=== PATIENT | male | born 1945 | race Caucasian/White ===

== ENCOUNTER 2018-07-17 03:43 | Emergency (ER) | payer MEDICARE, OTHER ==
[2018-07-17] MEDS ORDERED: Acetaminophen/HYDROcodone 325-5 MG Tab PO ONE (05:03)
--- NOTE | 2018-07-17 05:03 | EDM.PDOC ---
ED HPI GENERAL MEDICAL PROBLEM - General Chief Complaint: Upper Extremity Injury/Pain Stated Complaint: Elbow pain Time Seen by Provider: 07/17/18 04:26 Source of Information: Reports: Patient History Limitations: Reports: No Limitations - History of Present Illness INITIAL COMMENTS - FREE TEXT/NARRATIVE: Patient presents with pain and swelling of left elbow that occurred rather suddenly over the past couple days. 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 He first started noticing that it hurt to rest his arm on the arm rest, then yesterday it started to swell. Over night it became much more swollen. No fever or immune compromise. Denies any kidney disease. left elbow Pain Score (Numeric/FACES): 7 - Related Data Allergies Allergy/AdvReac Type Severity Reaction Status Date / Time No Known Allergies Allergy Verified 07/17/18 03:51 Home Meds: Home Meds . [No Known Home Meds] 07/17/18 [History] Past Medical History HEENT History: Reports: Other (See Below) Cardiovascular History: Reports: Other (See Below) Other Cardiovascular History: Leaky valve Other Respiratory History: Sarcoidosis Neurological History: Reports: Neuropathy, Peripheral Other Neuro History: Bilateral feet neuropathy - Infectious Disease History Infectious Disease History: Reports: None - Past Surgical History HEENT Surgical History: Reports: Other (See Below) Other HEENT Surgeries/Procedures: Eclipse piston replacement Left ear in 2016 Cardiovascular Surgical History: Reports: None Respiratory Surgical History: Reports: None Social & Family History - Family History Family Medical History: Noncontributory - Tobacco Use Smoking Status *Q: Never Smoker Second Hand Smoke Exposure: No - Caffeine Use Caffeine Use: Reports: Coffee - Alcohol Use Days Per Week of Alcohol Use: 3 Number of Drinks Per Day: 2 Total Drinks Per Week: 6 - Recreational Drug Use Recreational Drug Use: No Review of Systems - Review of Systems Review Of Systems: See Below Constitutional: Denies: Chills, Fever, Weakness Eyes: Reports: No Symptoms Ears: Reports: No Symptoms Nose: Reports: No Symptoms Mouth/Throat: Reports: No Symptoms Respiratory: Denies: Shortness of Breath, Cough Cardiovascular: Denies: Chest Pain, Syncope GI/Abdominal: Denies: Abdominal Pain Genitourinary: Reports: No Symptoms Musculoskeletal: Denies: Neck Pain, Shoulder Pain, Back Pain, Hand Pain, Leg Pain Skin: Denies: Cyanosis, Jaundice, Mottled, Pallor, Diaphoresis Neurological: Denies: Confusion, Dizziness, Headache, Seizure, Syncope, Trouble Speaking, Difficulty Walking Psychiatric: Denies: Confusion ED EXAM, GENERAL - Physical Exam Exam: See Below Exam Limited By: No Limitations General Appearance: Alert, WD/WN, No Apparent Distress Eye Exam: Bilateral Eye: EOMI, Normal Inspection, PERRL Ears: Normal External Exam, Hearing Grossly Normal Nose: Normal Inspection, No Blood Throat/Mouth: Normal Inspection, Normal Lips, Normal Voice, No Airway Compromise Head: Atraumatic, Normocephalic Neck: Normal Inspection, Full Range of Motion Respiratory/Chest: No Respiratory Distress, Lungs Clear, Normal Breath Sounds, No Accessory Muscle Use Cardiovascular: Regular Rate, Rhythm, No Murmur GI/Abdominal: No Distention Back Exam: Normal Inspection, Full Range of Motion Extremities: Normal Capillary Refill, Other (left elbow has a large posterior superficial effusion consistent with aseptic olecranon bursitis. No redness or warmth to touch. Tender to palpation and flexion. Full extension okay. No abrasions, cuts or other skin wounds that would be potential sites of infection entry.). No: Increased Warmth, Mottled, Pallor, Redness Neurological: Alert, Oriented, Normal Cognition, No Motor/Sensory Deficits Psychiatric: Normal Affect, Normal Mood Skin Exam: Warm, Dry, Intact, Normal Color, No Rash Course - Vital Signs Last Recorded V/S: Last Vital Signs Temp 99.2 F 07/17/18 03:45 Pulse 80 07/17/18 03:45 Resp 20 07/17/18 03:45 BP 155/55 H 07/17/18 03:45 Pulse Ox 92 L 07/17/18 03:45 - Re-Assessments/Exams Free Text/Narrative Re-Assessment/Exam: 07/17/18 05:21 This is consistent with aseptic olecranon bursitis. I discussed findings and recommendations with patient and his , including need for urgent followup if fever or increasing redness develops. I wrapped snuggly with NATHALIA but after a few minutes this increased the pain so I loosened somewhat. I gave him 2 tabs of hydrocodone to try to get some sleep. He will use Ibuprofen, ice, compression and extremity rest for a few days and follow up with orthopedics if not improving. Discharged to home in stable condition. Departure - Departure Time of Disposition: 04:51 Disposition: Home, Self-Care 01 Condition: Good Clinical Impression: Olecranon bursitis, left elbow Clinical Impression: (Ruled Out): Olecranon bursitis, right elbow - Discharge Information Instructions: Elbow Bursitis, [id number] Additional Instructions: 1. Try to rest elbow as much as possible, keep compression (NATHALIA) wrap on most of time, ice pack 20-30 minutes 2-3 times a day. 2. Try to avoid re-injury and activities that cause pain to elbow. 3. Take Ibuprofen 600 mg three times a day for 4-5 days. 4. Use the Hydrocodone as directed if pain isn't controlled by ice and Ibuprofen. 5. Follow up with an orthopedic doctor if not improving in a few days or sooner if worsening, fever, increasing redness.
== END 2018-07-17 05:10 | disposition home or self-care (01) ==
LOC: KA.ED 03:43
DX: M70.22 Olecranon bursitis, left elbow (principal)
CPT/HCPCS: 99283; 99284; A9270-GY

== ENCOUNTER 2019-09-03 20:29 | Emergency (ER) | payer MEDICARE, OTHER ==
[2019-09-03] MEDS: Lidocaine 1% with EPINEPHrine 1:100,000 20 ML MDV ONE (21:11)
[2019-09-03] MEDS: Lidocaine 1% with EPINEPHrine 1:100,000 20 ML MDV INJECT ONE (21:15)
[2019-09-03] MEDS: Diphtheria,Pertussis(Acell),Tetanus Vaccine 0.5 ML SDV IM ONE (21:16)
--- NOTE | 2019-09-03 21:29 | EDM.PDOC ---
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 He has a deep laceration and it hurts quite a bit to move very much. He denies hitting his head; denies LOC, neck pain, back pain or pain in other extremities. Right Elbow Pain Score (Numeric/FACES): 7 - Related Data Allergies Allergy/AdvReac Type Severity Reaction Status Date / Time No Known Allergies Allergy Verified 09/03/19 20:30 Home Meds: Home Meds . [No Known Home Meds] 07/17/18 [History] Past Medical History HEENT History: Reports: Other (See Below) Cardiovascular History: Reports: Other (See Below) Other Cardiovascular History: Leaky valve Other Respiratory History: Sarcoidosis Neurological History: Reports: Neuropathy, Peripheral Other Neuro History: Bilateral feet neuropathy - Infectious Disease History Infectious Disease History: Reports: None - Past Surgical History HEENT Surgical History: Reports: Other (See Below) Other HEENT Surgeries/Procedures: Eclipse piston replacement Left ear in 2016 Cardiovascular Surgical History: Reports: None Respiratory Surgical History: Reports: None Social & Family History - Family History Family Medical History: Noncontributory - Tobacco Use Smoking Status *Q: Never Smoker - Caffeine Use Caffeine Use: Reports: Coffee - Alcohol Use Days Per Week of Alcohol Use: 6 Number of Drinks Per Day: 3 Total Drinks Per Week: 18 - Recreational Drug Use Recreational Drug Use: No ED ROS GENERAL - Review of Systems Review Of Systems: See Below Constitutional: Denies: Fever, Chills, Malaise, Weakness HEENT: Denies: Ear Pain, Throat Pain, Vision Change Respiratory: Denies: Shortness of Breath, Cough Cardiovascular: Denies: Chest Pain, Lightheadedness, Syncope GI/Abdominal: Denies: Abdominal Pain, Vomiting : Reports: No Symptoms Musculoskeletal: Denies: Neck Pain, Shoulder Pain, Back Pain, Hand Pain, Leg Pain Skin: Denies: Cyanosis, Jaundice, Mottled, Pallor, Diaphoresis Neurological: Denies: Confusion, Dizziness, Headache, Seizure, Syncope, Trouble Speaking, Difficulty Walking Psychiatric: Denies: Agitation, Anxiety, Confusion ED EXAM, GENERAL - Physical Exam Exam: See Below Exam Limited By: No Limitations General Appearance: Alert, WD/WN, No Apparent Distress Eye Exam: Bilateral Eye: EOMI, Normal Inspection, PERRL Ears: Normal External Exam, Hearing Grossly Normal Nose: Normal Inspection, No Blood Throat/Mouth: Normal Inspection, Normal Voice, No Airway Compromise Head: Atraumatic, Normocephalic Neck: Normal Inspection, Non-Tender, Full Range of Motion. No: Tender Lateral, Tender Midline Respiratory/Chest: No Respiratory Distress, Lungs Clear, Normal Breath Sounds, No Accessory Muscle Use Cardiovascular: Regular Rate, Rhythm, No Murmur GI/Abdominal: Soft, Non-Tender, No Organomegaly, No Distention Back Exam: Normal Inspection, Full Range of Motion. No: Paraspinal Tenderness, Vertebral Tenderness Extremities: Other (3 cm laceration of posterior elbow that is deep and involves a lateral muscle; any movement is painful but can tolerate flexion to 90 degrees and extension to 160. Supination and pronation okay. Wrist and shoulder normal, painfree ROM. Distal CMS intact. Other extremities normal.) Neurological: Alert, Oriented, Normal Cognition, No Motor/Sensory Deficits Psychiatric: Normal Affect, Normal Mood Skin Exam: Warm, Dry, Normal Color, No Rash Course - Vital Signs Last Recorded V/S: Last Vital Signs Temp 97.5 F 09/03/19 20:46 Pulse 60 09/03/19 20:46 Resp 18 09/03/19 20:46 BP 138/59 L 09/03/19 20:46 Pulse Ox 95 09/03/19 20:46 - Orders/Labs/Meds Orders: Active Orders 24 hr Category Date Time Status Vaccines to be Administered [RC] PER UNIT ROUTINE Care 09/03/19 21:10 Active Elbow Min 3V Rt [CR] Stat Exams 09/03/19 20:39 Taken Meds: Medications Discontinued Medications Generic Name Dose Route Start Last Admin Trade Name Freq PRN Reason Stop Dose Admin Diphtheria/Tetanus/Acell Pertussis 0.5 ml 09/03/19 21:10 09/03/19 21:16 Adacel IM 09/03/19 21:11 0.5 ml .ONCE ONE Administration Lidocaine/Epinephrine Confirm 09/03/19 21:08 09/03/19 21:11 Xylocaine 1% With Epinephrine 1:100,000 Administered 09/03/19 21:09 Not Given Dose 20 ml .ROUTE .STK-MED ONE Lidocaine/Epinephrine 3 ml 09/03/19 21:10 09/03/19 21:15 Xylocaine 1% With Epinephrine 1:100,000 INJECT 09/03/19 21:11 3 ml ONETIME ONE Administration - Re-Assessments/Exams Free Text/Narrative Re-Assessment/Exam: 09/03/19 21:29 I didn't see a fracture and was getting ready to do the repair when the report came that there is a olecranon spur fracture. Since this would qualify as an open fracture I called [facility] and discussed case with Dr. Meyer. He is now reviewing the images and will call me back with recommendations. Patient has soaked for 15 minutes in hibiclens solution and I irrigated with 100 cc of same. I see what appears to be a muscle/tendon tear also. 09/03/19 21:45 Dr. Meyer called back and isn't convinced that there is a fracture but we discussed the possible muscle/tendon tear and decided to have patient go to [place] [facility]/ortho for evaluation. Discussed findings and plan with patient who is agreeable with this. We have given him TDAP. Discharged in stable condition to go directly to [facility]. Departure - Departure Time of Disposition: 21:44 Disposition: DC/Tfer to Acute Hospital 02 Condition: Good Clinical Impression: Laceration of elbow, right, with tendon involvement Qualifiers: Encounter type: initial encounter Qualified Code(s): S51.011A - Laceration without foreign body of right elbow, initial encounter; S46.921A - Laceration of unspecified muscle, fascia and tendon at shoulder and upper arm level, right arm, initial encounter - Discharge Information Referrals: Levi Echevarria MD [Primary Care Provider] - Additional Instructions: Go directly to [facility] in [place]. Don't eat or drink anything before you get there. Sepsis Event Note (ED) - Evaluation Sepsis Screening Result: No Definite Risk - Focused Exam Vital Signs: Vital Signs Temp Pulse Resp BP Pulse Ox 09/03/19 20:46 97.5 F 60 18 138/59 L 95 - My Orders Last 24 Hours: My Active Orders 09/03/19 20:39 Elbow Min 3V Rt [CR] Stat 09/03/19 21:10 Vaccines to be Administered [RC] PER UNIT ROUTINE - Assessment/Plan Last 24 Hours: My Active Orders 09/03/19 20:39 Elbow Min 3V Rt [CR] Stat 09/03/19 21:10 Vaccines to be Administered [RC] PER UNIT ROUTINE
--- NOTE | 2019-09-04 09:08 | CR ---
[id number] RAD/RAD Elbow Right 3V Min EXAM: RAD Elbow Right 3V Min INDICATION: FALL COMPARISON: None. DISCUSSION: There is an apparent soft tissue injury involving the dorsal elbow. A tiny chip fracture suggested of the tip of an olecranon enthesophyte at the triceps attachment site. Borderline joint effusion with possible 7 x 4 mm loose body or osseous fragment seen in the anterior superior recess of the elbow joint no donor site is identified. Mild osteoarthritis. IMPRESSION: 1. Tiny chip fracture of the tip of the triceps attachment site enthesophyte. 2. Small joint effusion with loose body or less likely displaced fracture fragment in the anterior superior joint space. Franki Gracia MD 09/04/19 0907 Thank you for allowing us to participate in the care of your patient.
== END 2019-09-03 22:00 ==
LOC: KA.ED 20:29
DX: S46.921A Laceration of unspecified muscle, fascia and tendon at shoulder and upper arm level, right arm, initial encounter (principal); G62.9 Polyneuropathy, unspecified; Z23 Encounter for immunization; W26.9XXA Contact with unspecified sharp object(s), initial encounter
CPT/HCPCS: 73080-RT; 90471; 90715; 99284; 99284-25

== ENCOUNTER 2020-08-30 16:50 | Emergency (ER) | payer MEDICARE, OTHER ==
--- NOTE | 2020-08-30 17:22 | EDM.PDOC ---
ED HPI GENERAL MEDICAL PROBLEM - General Stated Complaint: NOSE BLEED 1 HR PLUS Time Seen by Provider: 08/30/20 17:04 Source of Information: Reports: Patient, Significant Other History Limitations: Reports: No Limitations - History of Present Illness INITIAL COMMENTS - FREE TEXT/NARRATIVE: Patient presents with a nose bleed. He has been trying to get it stopped by plugging it with tissues (that usually works he says) but it keeps bleeding. He has had fairly frequent nosebleeds recently. He takes a daily ASA 81 mg but no anti-coagulants. - Related Data Allergies Allergy/AdvReac Type Severity Reaction Status Date / Time No Known Allergies Allergy Verified 08/30/20 17:37 Home Meds: Home Meds . [No Known Home Meds] 07/17/18 [History] Past Medical History HEENT History: Reports: Other (See Below) Cardiovascular History: Reports: Other (See Below) Other Cardiovascular History: Leaky valve Other Respiratory History: Sarcoidosis Neurological History: Reports: Neuropathy, Peripheral Other Neuro History: Bilateral feet neuropathy - Infectious Disease History Infectious Disease History: Reports: None - Past Surgical History HEENT Surgical History: Reports: Other (See Below) Other HEENT Surgeries/Procedures: Eclipse piston replacement Left ear in 2016 Cardiovascular Surgical History: Reports: None Respiratory Surgical History: Reports: None Social & Family History - Family History Family Medical History: No Pertinent Family History - Caffeine Use Caffeine Use: Reports: Coffee ED ROS ENT - Review of Systems Review Of Systems: See Below Constitutional: Denies: Fever, Chills, Malaise, Weakness HEENT: Denies: Ear Pain, Throat Pain, Vision Change Respiratory: Denies: Shortness of Breath, Cough Cardiovascular: Denies: Chest Pain, Lightheadedness, Syncope Endocrine: Denies: Fatigue GI/Abdominal: Denies: Abdominal Pain, Diarrhea, Vomiting Musculoskeletal: Reports: No Symptoms Skin: Denies: Cyanosis, Jaundice, Mottled, Pallor, Diaphoresis Neurological: Denies: Confusion, Dizziness, Seizure, Syncope, Trouble Speaking, Difficulty Walking Psychiatric: Denies: Agitation, Anxiety, Confusion Hematologic/Lymphatic: Reports: Easy Bleeding (just aspirin) ED EXAM, ENT - Physical Exam Exam: See Below Exam Limited By: No Limitations General Appearance: Alert, WD/WN, No Apparent Distress Eye Exam: Bilateral Eye: EOMI, Normal Inspection, PERRL Ears: Normal External Exam, Hearing Grossly Normal Nose: Active Bleeding (left nostril). No: Nasal Deformity, Nasal Swelling, Nasal Tenderness Mouth/Throat: Normal Inspection, Normal Lips, Other (bleeding down posterior pharynx) Head: Atraumatic, Normocephalic Neck: Normal Inspection, Full Range of Motion Respiratory/Chest: No Respiratory Distress, Lungs Clear, Normal Breath Sounds Cardiovascular: Regular Rate, Rhythm, No Murmur Back: Normal Inspection, Full Range of Motion Extremities: Normal Inspection, Normal Range of Motion Neurological: Alert, Oriented, Normal Cognition, No Motor/Sensory Deficits Psychiatric: Normal Affect, Normal Mood Skin: Warm, Dry, Intact, Normal Color, No Rash. No: Pallor Course - Re-Assessments/Exams Free Text/Narrative Re-Assessment/Exam: 08/30/20 17:34 The nurse held direct pressure for 15 minutes which seems to be controlling it. Pressure has been released for 10 minutes now without rebleeding. We discussed precautions, and options if bleeding recurs. 08/30/20 18:08 Hemostasis is achieved. Discussed findings and recommendations. Patient stable at discharge. Departure - Departure Time of Disposition: 18:08 Disposition: Home, Self-Care 01 Condition: Good Clinical Impression: Nasal bleeding - Discharge Information Instructions: Nosebleed, [id number] Referrals: Levi Echevarria MD [Primary Care Provider] -
[2020-08-30 17:37] VITALS: BP 167/76; PULSE 85
== END 2020-08-30 18:15 | disposition home or self-care (01) ==
LOC: KA.ED 16:50
DX: R04.0 Epistaxis (principal)
CPT/HCPCS: 99283